=== PATIENT | male | born 1955 ===

== ENCOUNTER 2017-11-03 11:53 | Emergency (ER) | payer OTHER ==
[2017-11-03 11:54] VITALS: BMI 24.7
[2017-11-03 13:14] VITALS: RESP 18; TEMP 97.6; O2SAT 100
--- NOTE | 2017-11-03 14:29 | C.PDOC ---
History Of Present Illness 62 year old male with a Hx of liver cirrhosis presents to the ER with a complaint of headache, dizziness and weakness, blurry visions, and difficulty speaking that began earlier today. Symptoms resolved as the day progressed. Patient states he had a similar episode 3 days ago, he went to [place] ER where he was diagnosed with hepatic encephalopathy and discharged home on lactulose. Patient normally takes lactulose 15ml three times a day and notes he took his morning dose today. He is concerned his symptoms may be related to an increase in his ammonia. Denies fever, chills, nausea, vomiting, abdominal pain, SOB, chest pain, or URI symptoms. Time Seen by Provider: 11/03/17 13:38 Chief Complaint (Nursing): Dizziness/Lightheaded History Per: Patient History/Exam Limitations: no limitations Onset/Duration Of Symptoms: Hrs Current Symptoms Are (Timing): Still Present Seizure Or Post-ictal Symptoms: None Fall Associated With With Symptoms: No Recent travel outside of the [place]: No Past Medical History Reviewed: Historical Data, Nursing Documentation, Vital Signs Vital Signs: Last Vital Signs Temp 97.6 F 11/03/17 13:09 Pulse 68 11/03/17 15:37 Resp 18 11/03/17 15:37 BP 149/86 11/03/17 15:37 Pulse Ox 100 11/03/17 17:16 - Medical History PMH: Anxiety, Arthritis, Depression, Hepatitis (C), HTN, Pancreatitis, Peripheral Edema Denies: Deep Vein Thrombosis, HIV, Chronic Kidney Disease Surgical History: Denies: Pacemaker - [facility] (12/22/16) (12/21/16) EXCISION OF STOMACH, ENDO, DIAGN (04/12/16) EXCISION OF STOMACH, PYLORUS, ENDO, DIAGN (01/16/15) INSERTION OF ENDOTRACHEAL AIRWAY INTO TRACHEA, VIA OPENING (12/22/16) INSERTION OF INFUSION DEV INTO R SUBCLAV VEIN, PERC APPROACH (12/22/16) INTRODUCTION OF SERUM/TOX/VACCINE INTO MUSCLE, PERC APPROACH (12/21/16) PERCUTANEOUS ABDOMINAL DRAINAGE (07/25/14) RESPIRATORY VENTILATION, LESS THAN 24 CONSECUTIVE HOURS (12/22/16) TRANSFUSE NONAUT RED BLOOD CELLS IN PERIPH VEIN, PERC (12/22/16) ULTRASONOGRAPHY OF RIGHT SUBCLAVIAN VEIN, GUIDANCE (12/22/16) VACCINATION NEC (07/25/14) Family History: States: Unknown Family Hx - Social History Hx Tobacco Use: No Hx Alcohol Use: No Hx Substance Use: No - Immunization History Hx Tetanus Toxoid Vaccination: No Hx Influenza Vaccination: No Hx Pneumococcal Vaccination: No Review Of Systems Constitutional: Negative for: Fever, Chills Eyes: Positive for: Vision Change (Blurred) ENT: Negative for: Ear Pain, Throat Pain Cardiovascular: Negative for: Chest Pain Respiratory: Negative for: Cough, Shortness of Breath Gastrointestinal: Negative for: Abdominal Pain Neurological: Positive for: Headache, Dizziness, Other (Difficulty speaking). Negative for: Weakness, Numbness Physical Exam - Physical Exam Appears: Non-toxic Skin: Normal Color, Warm, Dry Head: Atraumatic, Normacephalic Eye(s): bilateral: PERRL, EOMI, Scleral Icterus (Mild) Oral Mucosa: Moist Neck: Normal, Supple Chest: Symmetrical, No Tenderness Cardiovascular: Rhythm Regular Respiratory: Normal Breath Sounds, No Rales, No Rhonchi, No Wheezing Gastrointestinal/Abdominal: Soft, No Tenderness Back: No CVA Tenderness Extremity: Normal ROM (x4), No Pedal Edema Pulses: Left Dorsalis Pedis: Normal, Right Dorsalis Pedis: Normal Neurological/Psych: Oriented x3, Normal Speech, Normal Cognition, Normal Cranial Nerves, Normal Motor, Normal Sensation, Other (Slight confusion. No focal deficits.) Gait: Steady ED Course And Treatment - Laboratory Results Result Diagrams: 11/03/17 14:39 11/03/17 14:39 Lab Interpretation: No Changes Compared To Prior Results (ammonia lower than prior) O2 Sat by Pulse Oximetry: 100 (Room air) Pulse Ox Interpretation: Normal Progress Note: Blood work and urinalysis ordered. Antivert administered. Disposition Counseled Patient/Family Regarding: Studies Performed, Diagnosis, Need For Followup - Disposition Referrals: Sumit Vega MD [Medical Doctor] - Disposition: HOME/ ROUTINE Disposition Time: 17:19 Condition: IMPROVED Additional Instructions: Keep your appointment with Dr Vega tomorrow as scheduled Instructions: Dizziness, Nonvertigo, (DC) Forms: [facility] ([place]) - Clinical Impression Clinical Impression: Dizziness - Scribe Statement The provider has reviewed the documentation as recorded by the Scribe Yony Gamboa All medical record entries made by the Scribe were at my direction and personally dictated by me. I have reviewed the chart and agree that the record accurately reflects my personal performance of the history, physical exam, medical decision making, and the department course for this patient. I have also personally directed, reviewed, and agree with the discharge instructions and disposition.
[2017-11-03 14:44] LABS: BASO # 0.1 K/uL (0.0-0.2); BASO % 1.1 % (0.0-2.0); EOS # 0.2 K/uL (0.0-0.7); HEMOGLOBIN 12.5 g/dL (12.0-18.0); LYMPH # 0.9 K/uL (1.0-4.3); LYMPH % 17.6 % (20.0-40.0); MEAN CELL VOLUME 100.3 fL (80.0-94.0); MEAN CORPUSCULAR HEMOGLOBIN 34.7 pg (27.0-31.0); MEAN CORPUSCULAR HGB CONC 34.6 g/dL (33.0-37.0); MEAN PLATELET VOLUME 7.1 fL (7.2-11.7); MONO # 0.7 K/uL (0.0-0.8); MONO % 12.9 % (0.0-10.0); NEUT # 3.4 K/uL (1.8-7.0); NEUT % 65.4 % (50.0-75.0); RBC 3.58 Mil/uL (4.40-5.90); RED CELL DISTRIBUTION WIDTH 14.6 % (11.5-14.5); WHITE BLOOD COUNT 5.3 K/uL (4.8-10.8)
[2017-11-03 14:52] LABS: INR 1.2; PROTHROMBIN TIME 13.5 SECONDS (9.7-12.2)
[2017-11-03 14:59] LABS: ALB/GLOB RATIO 0.7 (1.0-2.1)
[2017-11-03 15:01] LABS: ALBUMIN 3.1 g/dL (3.5-5.0); ALT/SGPT 40 U/L (21-72); AST/SGOT 81 U/L (17-59); BLOOD UREA NITROGEN 18 mg/dL (9-20); CALCIUM 8.9 mg/dl (8.6-10.4); GFR NON-AFRICAN AMERICAN > 60
[2017-11-03 15:38] VITALS: BP 149/86; PULSE 68
[2017-11-03] MEDS ORDERED: Sodium Chloride 0.9% 1,000 ML IV ONE (15:51)
[2017-11-03 16:28] LABS: SQUAMOUS EPITHIAL < 1 /hpf (0-5); URINE BILIRUBIN NEGATIVE (NEGATIVE); URINE BLOOD NEGATIVE (NEGATIVE); URINE CLARITY Clear (Clear); URINE COLOR Yellow (YELLOW); URINE GLUCOSE (UA) NORMAL (Normal); URINE LEUKOCYTE ESTERASE NEG Leu/uL (Negative); URINE PROTEIN NEGATIVE (NEGATIVE); URINE UROBILINOGEN NORMAL mg/dL (0.2-1.0)
== END 2017-11-03 17:45 | disposition home or self-care (01) ==
LOC: C.ER 11:53
DX: R42 Dizziness and giddiness (principal)